=== PATIENT | male | born 2000 | race African-American/Black ===

== ENCOUNTER 2021-05-21 08:33 | Outpatient (CLI) | payer OTHER | END 2021-05-21 08:34 | disposition home or self-care (01) | LOC: DI 08:33 | DX: I51.7 Cardiomegaly (principal); F17.200 Nicotine dependence, unspecified, uncomplicated | CPT/HCPCS: 93306 ==

== ENCOUNTER 2021-10-22 15:36 | Emergency (ER) | payer OTHER ==
[2021-10-22] MEDS ORDERED: KETOROLAC 60 MG/2 ML VIAL IM STA (17:15)
[2021-10-22 17:21] VITALS: BP 133/72
--- NOTE | 2021-10-22 17:26 | ED Physician Documentation ---
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 He felt a sudden pop in the middle of his back and had excruciating pain that dropped him to the floor. He reports that he was in pain for about 20 minutes before he was able to get up. Since then he has had some persistent pain that radiates down into the gluteal area. He feels that he can walk okay but if he sits for too long the pain gets worse. No fevers, saddle anesthesia, bowel or bladder incontinence. No history of intravenous drug use or cancer. no hx of previous injury. Review of Systems Constitutional: reports: Reviewed and negative Nose: reports: Reviewed and negative Throat: reports: Reviewed and negative Cardiac: reports: Reviewed and negative Respiratory: reports: Reviewed and negative GI: reports: Reviewed and negative Musculoskeletal: reports: Back pain Neurologic: reports: Reviewed and negative PD PAST MEDICAL HISTORY - Present Medications Home Medications: Ambulatory Orders Medication Instructions Recorded Confirmed Cyclobenzaprine [Flexeril] 10 mg PO TID PRN #20 tablet 10/22/21 Ibuprofen [Motrin] 800 mg PO Q8H PRN #30 tablet 10/22/21 - Allergies Allergies/Adverse Reactions: Allergies Allergy/AdvReac Type Severity Reaction Status Date / Time No Known Drug Allergies Allergy Verified 10/22/21 15:49 PD ED PE EXPANDED - General General: Alert, No acute distress, Well developed/nourished - Cardiac Cardiac: Regular Rate, Radial strong equal. No: Murmur Present - Respiratory Respiratory: Clear to ausultation liana. No: Distress, Labored - Back Back: Soft tissue tenderness, Other (No midline spinous process tenderness elicited. Reduced forward flexion secondary to pain. Left paraspinous tenderness to deep palpation only. Mild tenderness at the SI joint. Negative straight leg bilaterally. No swelling or erythema. MS 5/5 bilateral lower extremities; 2+ patellar reflexes bilat). No: Normal exam, Normal ROM, Vertebral tenderness Results - Vitals Vitals: Vital Signs - 24 hr 10/22/21 10/22/21 15:41 17:16 Temperature 36.6 C Heart Rate 60 66 Respiratory 15 18 Rate Blood Pressure 142/101 H 133/72 H O2 Saturation 99 100 Oxygen O2 Source Room air PD MEDICAL DECISION MAKING - ED course Complexity details: considered differential, d/w patient ED course: Well-appearing 20-year-old male presents emergency department with acute mechanical left low back pain after lifting weights this AM. No red flags and a very reassuring exam with a normal gait. Patient was given Toradol here in the emergency department is recommended ibuprofen with food. We will also prescribe a limited amount of Flexeril. Advised to follow-up with [facility]. Discussed routine care as well as emergent return precautions. Departure - Departure Disposition: 01 Home, Self Care Clinical Impression: Left-sided low back pain without sciatica Qualifiers: Chronicity: acute Qualified Code(s): M54.50 - Low back pain, unspecified Condition: Stable Record reviewed to determine appropriate education?: Yes Instructions: ED Low Back Pain Injury Prescriptions: Cyclobenzaprine [Flexeril] 10 mg PO TID PRN #20 tablet PRN Reason: Spasms Ibuprofen [Motrin] 800 mg PO Q8H PRN #30 tablet PRN Reason: PAIN &/OR FEVER Comments: You were seen in the emergency department today for sudden left-sided low back pain after lifting weights. I suspect that you have strained the muscle however it is also possible that you have a disc herniation. The treatment at this time is not different. I would like you to take the ibuprofen with food 2-3 times a day. I recommend gentle stretching. I have also prescribed a "short course of Flexeril which is a muscle relaxer. In general it is important to keep moving with back pain. You can return to work but it should be mostly desk duty. No lifting pushing or pulling heavier than 10 pounds. I would like you to follow-up with [facility] soon as possible for reevaluation. Moving forward if your back pain symptoms are not improving you may benefit from referral to physical therapy. If at any point you develop numbness or tingling in your genital area, lose control of your bowel or bladder function, or have sudden weakness in your leg then you are to return immediately to the ER for a second evaluation. [place]
== END 2021-10-22 17:32 | disposition home or self-care (01) ==
LOC: ED 15:36
DX: M54.50 Low back pain, unspecified (principal)
CPT/HCPCS: 96372; 99283